=== PATIENT | female | born 1955 | race Caucasian/White ===

== ENCOUNTER 2017-05-07 09:42 | Observation (INO) | payer OTHER ==
[2017-05-07] VITALS (8 sets, daily range): BP systolic 126–156; BP diastolic 63–93; PULSE 77–87; RESP 16–20; TEMP 98.3–99.3; O2SAT 96–100
[~2017-05-07] VITALS: Ht 165.1 cm; Wt 67.0 kg
[~2017-05-07 09:42] MED LIST: PROPOFOL 200 MG/20 ML AMP IV ONE
[2017-05-07] MEDS ORDERED: DOCU50CA5 (10:06)
[2017-05-07] MEDS ORDERED: HYDR-3516 PO (10:06)
[2017-05-07] MEDS ORDERED: ADAL1INJ SQ (10:06)
[2017-05-07] MEDS ORDERED: TRAM50TA PO (10:06)
[2017-05-07] MEDS ORDERED: FAMO1TAB37 PO (10:06)
[2017-05-07] MEDS ORDERED: NAPR500 PO (10:06)
[2017-05-07] MEDS ORDERED: ROBA500T PO (10:06)
[2017-05-07] MEDS ORDERED: SODIUM CHLOR 0.9% 1000 ML INJ 1,000 ML IV SCH (10:14)
[2017-05-07] MEDS ORDERED: SODIUM CHLORIDE 0.9% FLUSH 10 ML FLUSH IV FLUSH PRN ×2 (10:15→15:45)
[2017-05-07] MEDS ORDERED: PROCHLORPERAZINE INJ 10 MG/2 ML VIAL IV PUSH ONE (10:15)
[2017-05-07] MEDS ORDERED: MORPHINE SULFATE 4 MG/ML INJ IV PUSH ONE (10:15)
--- NOTE | 2017-05-07 10:17 | PD ---
HPI Chief Complaint: GI Complaint Time Seen by Provider: 10:08 Travel History International Travel<30 days: No Contact w/Intl Traveler<30days: No Traveled to known affect area: No History of Present Illness HPI PATIENT HAD ABDOMINOPLASTY/LIFT ABOUT 1 WEEK AGO, BY DR DEJESUS, SHE WAS CONSTIPATED AND TOOK SENOKOT AND SINCE YESTERDAY HAS HAD 12 BM, AND N/V NOT IMPROVED BY ZOFRAN, FEELS LIGHTHEADED NOW. DENIES ANY FEVER/SAMUELS/CP/... PER PATIENT PMHX INCLUDED GERD , ESOPHAGEAL STRICTURE AND CHRON'S DZ. NO ALLEVIATING/AGGRAVATING FACTORS PER PATIENT. .PATIENT DOES NOT HAVE LOCAL GI DOCTOR AT THIS POINT DUE TO RECENT MOVE TO AREA. PATIENT WAS DUE FOR FOLLOWUP WITH DR DEJESUS TOMORROW BUT DECIDED TO COME TO ER BECAUSE SHE WAS NOT IMPROVING AND LIGHTHEADEDNESS APPEARED TO WORSEN PFSH Past Medical History GERD: Yes Medical other: Yes (chron's ds) Past Surgical History Abdominal Surgery: Yes (abdominoplasty) Other Surgery: Yes (breast lift, fistula sug, c2 neck surg) Social History Alcohol Use: No Tobacco Use: No Substance Use: No Allergies-Medications (Allergen,Severity, Reaction): Coded Allergies: No Known Allergies (Verified Allergy, Unknown, 05/07/17) Reported Meds & Prescriptions Reported Meds & Active Scripts Active Reported Humira 2-Pack Inj (Adalimumab 2-Pack Inj) 10 Mg/0.2 Ml Syr Unknown Dose SQ EVERY OTHER MONTH Tramadol (Tramadol HCl) 50 Mg Tab Unknown Dose PO Q4H PRN Hydrocodone-Acetaminophen 5-325 mg Tab 1 Tab PO Q4H PRN Robaxin (Methocarbamol) 500 Mg Tab Unknown Dose PO QID Stool Softener (Docusate Sodium) 50 Mg Capsule Unknown Dose Review of Systems Except as stated in HPI: all other systems reviewed are Neg Gastrointestinal: Positive: Nausea, Diarrhea Physical Exam Narrative GENERAL: SKIN: Warm and dry. HEAD: Atraumatic. Normocephalic. EYES: Pupils equal and round. No scleral icterus. No injection or drainage. ENT: No nasal bleeding or discharge. Mucous membranes pink and moist. NECK: Trachea midline. No JVD. CARDIOVASCULAR: Regular rate and rhythm. RESPIRATORY: No accessory muscle use. Clear to auscultation. Breath sounds equal bilaterally. GASTROINTESTINAL: Abdomen soft, non-tender, nondistended. Hepatic and splenic margins not palpable. MUSCULOSKELETAL: Extremities without clubbing, cyanosis, or edema. No obvious deformities. NEUROLOGICAL: Awake and alert. No obvious cranial nerve deficits. Motor grossly within normal limits. Five out of 5 muscle strength in the arms and legs. Normal speech. PSYCHIATRIC: Appropriate mood and affect; insight and judgment normal. Data Data Last Documented VS Orders Orders Complete Blood Count With Diff (05/07/17 10:14) Comprehensive Metabolic Panel (05/07/17 10:14) Lipase (05/07/17 10:14) Urinalysis - C+S If Indicated (05/07/17 10:14) Ct Abd/Pel W/O Iv Contrast (05/07/17 10:14) Iv Access Insert/Monitor (05/07/17 10:14) Ecg Monitoring (05/07/17 10:14) Oximetry (05/07/17 10:14) NPO (05/07/17 10:14) Morphine Inj (Morphine Inj) (05/07/17 10:15) Sodium Chlor 0.9% 1000 Ml Inj (Ns 1000 M (05/07/17 10:14) Sodium Chloride 0.9% Flush (Ns Flush) (05/07/17 10:15) Prochlorperazine Inj (Compazine Inj) (05/07/17 10:15) Ceftriaxone Inj (Rocephin Inj) (05/07/17 13:15) Azithromycin Inj (Zithromax Inj) (05/07/17 13:15) Chest, Pa & Lat (05/07/17 ) Admit Order (Ed Use Only) (05/07/17 14:21) Labs Laboratory Tests Test 05/07/17 10:30 05/07/17 11:30 White Blood Count 13.8 TH/MM3 Red Blood Count 2.94 MIL/MM3 Hemoglobin 9.0 GM/DL Hematocrit 26.9 % Mean Corpuscular Volume 91.5 FL Mean Corpuscular Hemoglobin 30.5 PG Mean Corpuscular Hemoglobin Concent 33.4 % Red Cell Distribution Width 13.3 % Platelet Count 360 TH/MM3 Mean Platelet Volume 10.5 FL Neutrophils (%) (Auto) 78.3 % Lymphocytes (%) (Auto) 10.7 % Monocytes (%) (Auto) 6.7 % Eosinophils (%) (Auto) 2.0 % Basophils (%) (Auto) 2.3 % Neutrophils # (Auto) 10.8 TH/MM3 Lymphocytes # (Auto) 1.5 TH/MM3 Monocytes # (Auto) 0.9 TH/MM3 Eosinophils # (Auto) 0.3 TH/MM3 Basophils # (Auto) 0.3 TH/MM3 CBC Comment DIFF FINAL Differential Comment Blood Urea Nitrogen 10 MG/DL Creatinine 0.62 MG/DL Random Glucose 126 MG/DL Total Protein 6.5 GM/DL Albumin 2.8 GM/DL Calcium Level 8.6 MG/DL Alkaline Phosphatase 49 U/L Aspartate Amino Transf (AST/SGOT) 42 U/L Alanine Aminotransferase (ALT/SGPT) 35 U/L Total Bilirubin 0.8 MG/DL Sodium Level 135 MEQ/L Potassium Level 4.4 MEQ/L Chloride Level 102 MEQ/L Carbon Dioxide Level 25.7 MEQ/L Anion Gap 7 MEQ/L Estimat Glomerular Filtration Rate 98 ML/MIN Lipase 128 U/L Urine Color YELLOW Urine Turbidity CLEAR Urine pH 8.0 Urine Specific [place] 1.016 Urine Protein NEG mg/dL Urine Glucose (UA) NEG mg/dL Urine Ketones 15 mg/dL Urine Occult Blood NEG Urine Nitrite NEG Urine Bilirubin NEG Urine Leukocyte Esterase NEG Urine Squamous Epithelial Cells 0-5 /hpf Microscopic Urinalysis Comment CULT NOT INDICATED MDM Medical Decision Making Medical Screen Exam Complete: Yes Emergency Medical Condition: Yes Medical Record Reviewed: Yes Differential Diagnosis ENTERITIS V PNA V UTI V GASTRITIS V SBO V ILEUS Narrative Course AFTER THOROUGH EVALUATION PATIENT WAS NOTED TO HAVE RLL AND CONTINUED INTRACTABLE NAUSEA, PATIENT GIVEN IV ABX AND ADMITTED DUE TO PERSISTENT NAUSEA AND UNABLE TO TOLERATE PO CHALLENGE. Diagnosis Primary Impression: RLL pneumonia Qualified Codes: J18.1 - Lobar pneumonia, unspecified organism Admitting Information Admitting Physician Requests: Observation Scripts Azithromycin (Azithromycin) 250 Mg Tab 250 MG PO DAILY for Infection, #3 TAB 0 Refills Prov: Jeremy Lee MD 05/10/17 Levofloxacin (Levofloxacin) 500 Mg Tablet 500 MG PO DAILY for Infection, #7 TAB 0 Refills Prov: Jeremy Lee MD 05/10/17 Sucralfate (Carafate) 1 Gram Tab 1 GM PO QID for Ulcer Prevention, #120 TAB 0 Refills On empty stomach Prov: Jeremy Lee MD 05/10/17 Pantoprazole (Protonix) 40 Mg Tab 40 MG PO twice daily for Reflux, #60 TAB 0 Refills Prov: Jeremy Lee MD 05/10/17 Fidel Iglesias MD May 07, 2017 10:17
[2017-05-07 10:44] LABS: AUTOMATED NEUTROPHIL # 10.8 TH/MM3 (1.8-7.7); BASOPHIL # 0.3 TH/MM3 (0-0.2); BASOPHIL % 2.3 % (0.0-2.0); EOSINOPHIL # 0.3 TH/MM3 (0-0.4); HEMATOCRIT 26.9 % (35.0-46.0); LYMPH % 10.7 % (9.0-44.0); LYMPHOCYTE # 1.5 TH/MM3 (1.0-4.8); MEAN CELL VOLUME 91.5 FL (80.0-100.0); MEAN CORPUSCULAR HEMOGLOBIN 30.5 PG (27.0-34.0); MEAN CORPUSCULAR HGB CONC 33.4 % (32.0-36.0); MONO % 6.7 % (0.0-8.0); NEUT % 78.3 % (16.0-70.0); PLATELET COUNT 360 TH/MM3 (150-450); RED BLOOD COUNT 2.94 MIL/MM3 (4.00-5.30); RED CELL DISTRIBUTION WIDTH 13.3 % (11.6-17.2); WHITE BLOOD COUNT 13.8 TH/MM3 (4.0-11.0)
[2017-05-07 10:46] LABS: CHLORIDE 102 MEQ/L (98-107); POTASSIUM 4.4 MEQ/L (3.5-5.1); SODIUM (NA) 135 MEQ/L (136-145)
[2017-05-07 10:52] LABS: ANION GAP 7 MEQ/L (5-15); BICARBONATE 25.7 MEQ/L (21.0-32.0); BLOOD UREA NITROGEN 10 MG/DL (7-18)
[2017-05-07 10:54] LABS: ALT (GPT) 35 U/L (10-53); AST (GOT) 42 U/L (15-37); HEMO FLAGS DIFF FINAL
[2017-05-07 10:55] LABS: GLOMERULAR FILTRATION RATE 98 ML/MIN (>89)
[2017-05-07 10:56] LABS: TOTAL BILIRUBIN ADULT 0.8 MG/DL (0.2-1.0)
[2017-05-07 10:57] LABS: ALKALINE PHOSPHATASE 49 U/L (45-117)
--- NOTE | 2017-05-07 11:33 | RADRPT ---
EXAM DATE/TIME: 05/07/2017 11:03 [facility] COMPARISON: No previous studies available for comparison. INDICATIONS : Nausea. Status post abdominoplasty one week ago. No improvement with nausea medication during that time. ORAL CONTRAST: No oral contrast ingested. RADIATION DOSE: 11.69 CTDIvol (mGy) MEDICAL HISTORY : Gastroesophageal reflux disease. SURGICAL HISTORY : Abdominoplasty. ENCOUNTER: Initial ACUITY: 1 week PAIN SCALE: 4/10 LOCATION: abdomen TECHNIQUE: Volumetric scanning of the abdomen and pelvis was performed. Using automated exposure control and ad justment of the mA and/or kV according to patient size, radiation dose was kept as low as reasonably achievable to obtain optimal diagnostic quality images. DICOM format image data is available electro nically for review and comparison. FINDINGS: LOWER LUNGS: Consolidative changes are seen in the right lung base suspicious for an inflammatory process. Atelec tatic changes would be a consideration. The liver, spleen, pancreas and adrenals unremarkable. Kidneys unremarkable. There is no free air. There is no ascites. Pelvic contents unremarkable. Extensive induration is seen in the anterior abdominal wall with scattered air throughout the abdomin al wall consistent with the history of previous abdominoplasty. These indurative changes extend down to the pubic symphysis and laterally into both femurs. CONCLUSION: Markedly abnormal abdominal wall as described above. Air and induration is present. I am not sure if this is expected postsurgical or not. Inflammatory changes versus atelectasis right base. I would favor an inflammatory process. Intra-abdominal contents unremarkable without free air. Jesus Arciniega MD FACR on May 07, 2017 at 11:19 Board Certified Radiologist. This report was verified electronically.
[2017-05-07 11:54] LABS: BLOOD, URINE NEG (NEG); GLUCOSE,URINE NEG (NEG); KETONE, URINE 15 mg/dL (NEG); NITRITE,URINE NEG (NEG)
[2017-05-07 12:05] LABS: URINE COLOR YELLOW (YELLW/STRAW)
[2017-05-07 12:06] LABS: COMMENT (UR) CULT NOT INDICATED; CULTURE IF INDICATED CULT NOT INDICATED; SQUAMOUS EPITHELIAL CELL URINE 0-5 /hpf (0-5)
[2017-05-07] MEDS ORDERED: AZITHROMYCIN INJ 500 MG in SODIUM CHLOR 0.9% 250 ML INJ 250 ML IV ONE (13:15)
[2017-05-07] MEDS ORDERED: cefTRIAXone INJ 1,000 MG in SODIUM CHLORIDE 0.9% INJ 100 ML IV ONE (13:15)
[2017-05-07] MEDS ORDERED: METOCLOPRAMIDE HCL 10 MG/2 ML VIAL IV PUSH ONE (15:00)
--- NOTE | 2017-05-07 15:18 | RADRPT ---
EXAM DATE/TIME: 05/07/2017 14:30 [facility] COMPARISON: CT ABDOMEN & PELVIS W/O CONTRAST, May 07, 2017, 11:03. INDICATIONS : Cough MEDICAL HISTORY : Gastroesophageal reflux disease. SURGICAL HISTORY : Abdominoplasty. ENCOUNTER: Initial ACUITY: 1 week PAIN SCORE: 4/10 LOCATION: Bilateral chest FINDINGS: The examination demonstrates a focal area of dense consolidation in the right middle lobe. There is a small amount of atelectasis at the left lung base as well. The heart is normal in size. The mediasti nal contours are within normal limits. No pleural effusion is seen. The bony structures are intact. CONCLUSION: 1. There is an area of dense consolidation in the right middle lobe. Followup to ensure this resolves would be warranted. Akin Arciniega MD on May 07, 2017 at 15:15 Board Certified Radiologist. This report was verified electronically.
[2017-05-07] MEDS ORDERED: NALOXONE HCL 0.4 MG/ML AMP IV PUSH PRN (16:15)
[2017-05-07] MEDS ORDERED: ONDANSETRON HCL 4 MG/2 ML VIAL IVP PRN (16:15)
[2017-05-07] MEDS ORDERED: ACETAMINOPHEN 325 MG TAB PO PRN ×2 (16:15→16:45)
--- NOTE | 2017-05-07 16:40 | HHI.HP ---
[facility] No Primary Care Physician Admission Diagnosis RLL PNA Diagnoses: (1) HCAP (healthcare-associated pneumonia) Diagnosis: Principal (2) S/P abdominoplasty Diagnosis: Principal (3) Hip pain, bilateral Diagnosis: Principal (4) Nausea Diagnosis: Principal (5) Anemia Diagnosis: Principal Chief Complaint: nauseated, fevers Travel History International Travel<30 Days: No Contact w/Intl Traveler <30 Da: No Traveled to Known Affected Are: No History of Present Illness 62-year-old female with history of Crohn's disease, GERD, and DDD with abdominoplasty/lift and liposuction of B/L hips one week ago is admitted for pneumonia. Patient states she has been nauseated off and on and she has not been keeping anything down over the last few days and she thought she was dehydrated. One episode of emesis this morning. Post op SL Zofran not working. She admits to low-grade fevers stating she even had one this afternoon admitting to flushed face and "hot" eyes. She admits to chills. She did not take her temperature at home. She admits to abdominal pain and bilateral hip pain from surgery last week. She was prescribed hydrocodone and Robaxin postop. She stopped taking the hydrocodone over the last few days due to nausea although states it was helping the pain. She has also been taking naproxen 500 mg every 12 hours postop. She was given morphine in the ED which helped the pain. She states she has a history of GERD and she has been belching a lot and has not taken her medication lately due to the surgery. She requests being restarted on Protonix as she takes this or Pepcid at home. She states her physician Dr. Marc is out of town but she was supposed to follow up with his daughter tomorrow. She denies any runny nose, congestion, earache, sore throat , or cough, chest pain, or shortness of breath. She denies any redness around the incision site or purulent drainage. She states she had a little lightheadedness last night but denies any headache or blurred vision. She admits to a rash over her back but believes that it's a heat rash. Denies any dysuria. Patient states she was constipated and took a Senokot yesterday and had 12 loose bowel movements but it was not diarrhea. She states her Crohn's is well-controlled. She moved here one year ago and has not established care with a new GI physician. She takes Humira and last took it last month. Review of Systems Constitutional: COMPLAINS OF: Fever, Chills Eyes: DENIES: Blurred vision Ears, nose, mouth, throat: DENIES: Throat pain, Ear Pain, Running Nose Respiratory: DENIES: Cough, Shortness of breath Cardiovascular: DENIES: Chest pain Gastrointestinal: COMPLAINS OF: Abdominal pain, Constipation, Nausea, Vomiting , DENIES: Black stools, Bloody stools, Diarrhea Genitourinary: DENIES: Dysuria Musculoskeletal: COMPLAINS OF: Joint pain Integumentary: COMPLAINS OF: Rash Neurologic: DENIES: Headache + Lightheadedness last night Past Family Social History Past Medical History GERD Crohn's disease DDD of cervical spine Past Surgical History Abdominoplasty/lift and liposuction bilateral legs 1 week ago Breast lift Perirectal fistula surgery C4-C6 surgery 12:15 years ago Reported Medications Reported Meds & Active Scripts Active Reported Humira 2-Pack Inj (Adalimumab 2-Pack Inj) 10 Mg/0.2 Ml Syr Unknown Dose SQ EVERY OTHER MONTH (administered last month) Tramadol (Tramadol HCl) 50 Mg Tab Unknown Dose PO Q4H PRN Hydrocodone-Acetaminophen 5-325 mg Tab 1 Tab PO Q4H PRN Naprosyn (Naproxen) 500 Mg Tab 500 Mg PO BID Robaxin (Methocarbamol) 500 Mg Tab Unknown Dose PO QID Pepcid (Famotidine) 20 Mg Tab Unknown Dose PO BID or Protonix Stool Softener (Docusate Sodium) 50 Mg Capsule Unknown Dose Allergies: Coded Allergies: No Known Allergies (Verified Allergy, Unknown, 05/07/17) Family History Mother: of stroke at age 69, diabetes. Father: of pancreatic cancer at age 56, diabetes. Mother and father have no h/o immune disorders. 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 Denies alcohol use. Quit smoking cigarettes 15-20 years ago. Prior to this she smoked one half pack per day starting at age of 25. Denies illicit drug use. Physical Exam Vital Signs Vital Signs Date Time Temp Pulse Resp B/P (MAP) Pulse Ox O2 Delivery O2 Flow Rate FiO2 05/07/17 16:19 05/07/17 13:58 84 20 126/70 (88) 99 05/07/17 13:09 81 20 133/66 (88) 96 05/07/17 12:13 82 18 142/63 (89) 98 05/07/17 11:25 77 20 135/93 (107) 98 05/07/17 10:30 87 20 128/76 (93) 100 05/07/17 10:30 100 05/07/17 09:51 99.3 85 16 147/79 (101) 100 Physical Exam GENERAL: This is a well-nourished, well-developed patient, in no apparent distress but appears to be feeling unwell. SKIN: Small scabbed lesions to the lower back. Umbilical and pelvic incision sites appear without erythema, dehiscence, or drainage. Light ecchymosis over the anterior thighs. HEAD: Atraumatic. Normocephalic. EYES: No scleral icterus. No injection or drainage. ENT: Uvula midline. Airway patent. NECK: Trachea midline. No lymphadenopathy. CARDIOVASCULAR: Regular rate and rhythm without murmurs, gallops, or rubs. RESPIRATORY: Clear to auscultation. Breath sounds equal bilaterally. No wheezes , rales, or rhonchi. GASTROINTESTINAL: No deep palpation performed due patient's discomfort, but no guarding. Abdomen soft, nondistended. MUSCULOSKELETAL: No lower extremity edema bilaterally. NEUROLOGICAL: Awake and alert. Motor grossly within normal limits. Normal speech. Laboratory Laboratory Tests Test 05/07/17 10:30 05/07/17 11:30 White Blood Count 13.8 Red Blood Count 2.94 Hemoglobin 9.0 Hematocrit 26.9 Mean Corpuscular Volume 91.5 Mean Corpuscular Hemoglobin 30.5 Mean Corpuscular Hemoglobin Concent 33.4 Red Cell Distribution Width 13.3 Platelet Count 360 Mean Platelet Volume 10.5 Neutrophils (%) (Auto) 78.3 Lymphocytes (%) (Auto) 10.7 Monocytes (%) (Auto) 6.7 Eosinophils (%) (Auto) 2.0 Basophils (%) (Auto) 2.3 Neutrophils # (Auto) 10.8 Lymphocytes # (Auto) 1.5 Monocytes # (Auto) 0.9 Eosinophils # (Auto) 0.3 Basophils # (Auto) 0.3 CBC Comment DIFF FINAL Differential Comment Blood Urea Nitrogen 10 Creatinine 0.62 Random Glucose 126 Total Protein 6.5 Albumin 2.8 Calcium Level 8.6 Alkaline Phosphatase 49 Aspartate Amino Transf (AST/SGOT) 42 Alanine Aminotransferase (ALT/SGPT) 35 Total Bilirubin 0.8 Sodium Level 135 Potassium Level 4.4 Chloride Level 102 Carbon Dioxide Level 25.7 Anion Gap 7 Estimat Glomerular Filtration Rate 98 Lipase 128 Urine Color YELLOW Urine Turbidity CLEAR Urine pH 8.0 Urine Specific [place] 1.016 Urine Protein NEG Urine Glucose (UA) NEG Urine Ketones 15 Urine Occult Blood NEG Urine Nitrite NEG Urine Bilirubin NEG Urine Leukocyte Esterase NEG Urine Squamous Epithelial Cells 0-5 Microscopic Urinalysis Comment CULT NOT INDICATED Result Diagram: 05/07/17 1030 05/07/17 1030 Imaging Last Impressions Abdomen/Pelvis CT 05/07/17 1014 Signed Impressions: Service Date/Time: Sunday, May 07, 2017 11:03 - CONCLUSION: Markedly abnormal abdominal wall as described above. Air and induration is present. I am not sure if this is expected postsurgical or not. Inflammatory changes versus atelectasis right base. I would favor an inflammatory process. Intra-abdominal contents unremarkable without free air. Jesus Arciniega MD FACR Chest X-Ray 05/07/17 0000 Signed Impressions: Service Date/Time: Sunday, May 07, 2017 14:30 - CONCLUSION: 1. There is an area of dense consolidation in the right middle lobe. Followup to ensure this resolves would be warranted. Akin Arciniega MD Caprini VTE Risk Assessment Caprini VTE Risk Assessment: Mod/High Risk (score >= 2) Caprini Risk Assessment Model Point Value = 1 Point Value = 2 Point Value = 3 Point Value = 5 Age 41-60 Minor surgery BMI > 25 kg/m2 Swollen legs Varicose veins or History of unexplained or recurrent spontaneous Oral contraceptives or hormone replacement Sepsis (< 1 month) Serious lung disease, including pneumonia (< 1 month) Abnormal pulmonary function Acute myocardial infarction Congestive heart failure (< 1 month) History of inflammatory bowel disease Medical patient at bed rest Age 61-74 Arthroscopic surgery Major open surgery (> 45 min) Laparoscopic surgery (> 45 min) Malignancy Confined to bed (> 72 hours) Immobilizing plaster cast Central venous access Age >= 75 History of VTE Family history of VTE Factor V Leiden Prothrombin [id number] Lupus anticoagulant Anticardiolipin antibodies Elevated serum homocysteine Heparin-induced thrombocytopenia Other congenital or acquired thrombophilia Stroke (< 1 month) Elective arthroplasty Hip, pelvis, or leg fracture Acute spinal cord injury (< 1 month) Prophylaxis Regimen Total Risk Factor Score Risk Level Prophylaxis Regimen 0-1 Low Early ambulation 2 Moderate Order ONE of the following: *Sequential Compression Device (SCD) *Heparin 5000 units SQ BID 3-4 Higher Order ONE of the following medications: *Heparin 5000 units SQ TID *Enoxaparin/Lovenox 40 mg SQ daily (WT < 150 kg, CrCl > 30 mL/min) *Enoxaparin/Lovenox 30 mg SQ daily (WT < 150 kg, CrCl > 10-29 mL/min) *Enoxaparin/Lovenox 30 mg SQ BID (WT < 150 kg, CrCl > 30 mL/min) AND/OR *Sequential Compression Device (SCD) 5 or more Highest Order ONE of the following medications: *Heparin 5000 units SQ TID (Preferred with Epidurals) *Enoxaparin/Lovenox 40 mg SQ daily (WT < 150 kg, CrCl > 30 mL/min) *Enoxaparin/Lovenox 30 mg SQ daily (WT < 150 kg, CrCl > 10-29 mL/min) *Enoxaparin/Lovenox 30 mg SQ BID (WT < 150 kg, CrCl > 30 mL/min) AND *Sequential Compression Device (SCD) Assessment and Plan Assessment and Plan 62-year-old female with: Healthcare associated pneumonia: Patient recently had abdominoplasty one week ago; hospitalized for only 1 day. On Humira for Crohn's. She works in the hospital. Likely related to not taking deep breaths due to pain and abdominal binder use. She does admit to low-grade fevers and chills but has not had any respiratory symptoms. Chest x-ray was personally interpreted and does reveal an obvious pneumonia in the right middle lobe. Patient has mild leukocytosis of 13.8, but no evidence of sepsis. Temp 99.3 tympanic on arrival, no fever. Patient's lungs are clear. -Patient received ceftriaxone and azithromycin in the ED. Will continue patient on cefepime and azithromycin. -Incentive spirometry -Albuterol q4h prn wheezing/SOB -Monitor pulse oximetry Status post abdominoplasty: 1 week ago. Patient has continued pain over the abdomen as well as the hips. CT of the abdomen and pelvis shows air and induration but these are likely normal post surgical changes. The intra- abdominal contents are unremarkable without free air. Incision sites appear to be healing well. No evidence of infection. -Pain control with [place] 5 q6h prn pain 3-6 and [place] 10 q6h prn pain 7-10 with breakthrough morphine q4h prn. Avoid q4 dosing of [place] due to pneumonia. Monitor respiratory status. -Continue abdominal binder B/L hip pain: due to liposuction 1 week ago. -PT consulted Nausea: Patient has been taking SL Zofran without relief. One episode of emesis. Received IV Compazine and Reglan in the ED. Lipase normal. UA negative. -Initially ordered Zofran and Reglan IV but RN informed me that patient states only the Compazine worked. Will order Compazine 5 mg q6h IV prn nausea/vomiting. -IV NS @ 100 mL/hr -BRAT diet for now. Advance as tolerated Anemia: Acute. Hemoglobin 9.0. Patient states her preoperative hemoglobin was 12.?. States surgery was 6.5 hours. Likely post-operative anemia. -Repeat am CBC. GI prophylaxis: Protonix 40 mg daily. Tums and Maalox prn dyspepsia. DVT prophylaxis: Lovenox 40 mg sq daily. Discussed Condition With Susan Flower May 07, 2017 16:40
[2017-05-07] MEDS ORDERED: ALUMINUM/MAGNESIUM/SIMETH 30 ML CUP PO PRN (16:45)
[2017-05-07] MEDS ORDERED: MORPHINE SULFATE 4 MG/ML INJ IV PUSH PRN (16:45)
[2017-05-07] MEDS ORDERED: RESP: ALBUTEROL 1.25 MG/3 ML NEB (PRN) NEB (16:45)
[2017-05-07] MEDS ORDERED: ACETAMINOPHEN/HYDROcodone 325 MG/5 MG TAB PO PRN (16:45)
[2017-05-07] MEDS ORDERED: ACETAMINOPHEN/HYDROcodone 325 MG/10 MG TAB PO PRN (16:45)
[2017-05-07] MEDS: SODIUM CHLOR 0.9% 1000 ML INJ 1,000 ML IV SCH (16:55)
[2017-05-07] MEDS ORDERED: CALCIUM CARBONATE 500 MG CHEWABLE TAB CHEW PRN (17:15)
[2017-05-07] MEDS: ACETAMINOPHEN/HYDROcodone 325 MG/10 MG TAB PO PRN (18:21)
[2017-05-07] MEDS: CEFEPIME INJ 2,000 MG in SODIUM CHLORIDE 0.9% INJ 100 ML IV SCH (18:27)
[2017-05-07] MEDS: ENOXAPARIN SODIUM 40 MG/0.4 ML SYRINGE SQ SCH (18:30)
[2017-05-07] MEDS: PANTOPRAZOLE SOD 40 MG DELAYED RELEASE TAB PO SCH (20:59)
[2017-05-07] MEDS: SODIUM CHLORIDE 0.9% FLUSH 10 ML FLUSH IV FLUSH SCH (20:59)
[2017-05-07] MEDS ORDERED: METOCLOPRAMIDE HCL 10 MG/2 ML VIAL IV PUSH PRN (21:00)
[2017-05-07] MEDS: PROCHLORPERAZINE INJ 10 MG/2 ML VIAL IV PUSH PRN (21:02)
[2017-05-08] VITALS (13 sets, daily range): BP systolic 106–157; BP diastolic 56–87; PULSE 18–88; RESP 12–20; TEMP 96.9–98.8; O2SAT 96–99
[2017-05-08] MEDS: CEFEPIME INJ 2,000 MG in SODIUM CHLORIDE 0.9% INJ 100 ML IV SCH ×3 (01:52→20:41)
[2017-05-08] MEDS: SODIUM CHLOR 0.9% 1000 ML INJ 1,000 ML IV SCH ×2 (01:53→16:57)
[2017-05-08] MEDS: PROCHLORPERAZINE INJ 10 MG/2 ML VIAL IV PUSH PRN ×2 (03:19→11:44)
[2017-05-08] MEDS: ACETAMINOPHEN/HYDROcodone 325 MG/10 MG TAB PO PRN (06:19)
[2017-05-08 06:32] LABS: BASOPHIL # 0.1 TH/MM3 (0-0.2); BASOPHIL % 0.5 % (0.0-2.0); EOSINOPHIL # 0.4 TH/MM3 (0-0.4); EOSINOPHIL % 2.8 % (0.0-4.0); HEMATOCRIT 23.5 % (35.0-46.0); LYMPH % 11.5 % (9.0-44.0); LYMPHOCYTE # 1.5 TH/MM3 (1.0-4.8); MEAN CELL VOLUME 92.6 FL (80.0-100.0); MEAN CORPUSCULAR HEMOGLOBIN 30.7 PG (27.0-34.0); MEAN CORPUSCULAR HGB CONC 33.2 % (32.0-36.0); MONO % 6.2 % (0.0-8.0); PLATELET COUNT 307 TH/MM3 (150-450); RED BLOOD COUNT 2.54 MIL/MM3 (4.00-5.30); RED CELL DISTRIBUTION WIDTH 13.1 % (11.6-17.2); WHITE BLOOD COUNT 12.8 TH/MM3 (4.0-11.0)
[2017-05-08 06:42] LABS: HEMO FLAGS DIFF FINAL; POTASSIUM 4.1 MEQ/L (3.5-5.1)
[2017-05-08 06:57] LABS: BICARBONATE 24.6 MEQ/L (21.0-32.0)
[2017-05-08] MEDS: SODIUM CHLORIDE 0.9% FLUSH 10 ML FLUSH IV FLUSH SCH ×2 (09:07→20:41)
[2017-05-08] MEDS: PANTOPRAZOLE SOD 40 MG DELAYED RELEASE TAB PO SCH (09:08)
[2017-05-08] MEDS ORDERED: SODIUM CHLOR 0.9% 250 ML INJ 250 ML IV ONE (10:00)
--- NOTE | 2017-05-08 11:20 | HHI.PR ---
Subjective Remarks Seen today in follow-up for pneumonia and post op constipation with subsequent nausea. Gastro-intestinal symptoms are improved. Patient has diffuse bruises postoperatively. Her hemoglobin has gone from 9-7.8. Patient says prior to her surgical experiences her hemoglobin was about 13. Leukocytosis improved after hydration. Patient tolerates azithromycin and cefepime well. Objective Vitals Vital Signs Date Time Temp Pulse Resp B/P (MAP) Pulse Ox O2 Delivery O2 Flow Rate FiO2 05/08/17 08:00 96.9 71 14 121/79 (93) 97 05/08/17 00:00 98.4 84 20 131/70 (90) 98 05/07/17 20:00 98.3 85 20 156/79 (104) 99 05/07/17 18:45 97 21 05/07/17 16:19 05/07/17 13:58 84 20 126/70 (88) 99 05/07/17 13:09 81 20 133/66 (88) 96 05/07/17 12:13 82 18 142/63 (89) 98 05/07/17 11:25 77 20 135/93 (107) 98 I/O 05/07/17 05/07/17 05/07/17 05/08/17 05/08/17 05/08/17 07:00 15:00 23:00 07:00 15:00 23:00 Intake Total 268 ml 100 ml 220 ml Output Total 1100 ml Balance 268 ml 100 ml -880 ml Intake Oral 120 ml IV Total 268 ml 100 ml 100 ml Output Urine Total 1100 ml # Voids 1 # Bowel Movements 1 0 Result Diagram: 05/08/17 0520 05/08/17 0520 Imaging Last Impressions Abdomen/Pelvis CT 05/07/17 1014 Signed Impressions: Service Date/Time: Sunday, May 07, 2017 11:03 - CONCLUSION: Markedly abnormal abdominal wall as described above. Air and induration is present. I am not sure if this is expected postsurgical or not. Inflammatory changes versus atelectasis right base. I would favor an inflammatory process. Intra-abdominal contents unremarkable without free air. Jesus Arciniega MD FACR Chest X-Ray 05/07/17 0000 Signed Impressions: Service Date/Time: Sunday, May 07, 2017 14:30 - CONCLUSION: 1. There is an area of dense consolidation in the right middle lobe. Followup to ensure this resolves would be warranted. Akin Arciniega MD Objective Remarks Diffuse ecchymosis and postsurgical changes GENERAL: This is a well-nourished, well-developed patient, in no apparent distress. CARDIOVASCULAR: Regular rate and rhythm without murmurs, gallops, or rubs. RESPIRATORY: Clear to auscultation. Breath sounds equal bilaterally. No wheezes , rales, or rhonchi. GASTROINTESTINAL: Abdominal binder in place otherwise Abdomen soft, non-tender, nondistended. Normal active bowel sounds MUSCULOSKELETAL: Extremities without clubbing, cyanosis, or edema. NEURO: Alert & Oriented x4 to person, place, time, situation. Moves all ext x4 A/P Problem List: (1) HCAP (healthcare-associated pneumonia) ICD Code: J18.9 - Pneumonia, unspecified organism Plan: Continue with azithromycin and cefepime, likely to oral medicines tomorrow (2) S/P abdominoplasty ICD Code: Z98.890 - Other specified postprocedural states Plan: Doing well postoperatively, follows up with plastic surgery Continue abdominal binder (3) Nausea ICD Code: R11.0 - Nausea Plan: Resolved, continue diet and supportive care (4) Anemia ICD Code: D64.9 - Anemia, unspecified Plan: Likely due to postoperative bleeding Transfuse 1 unit packed red blood cells, follow clinically Discharge Planning Likely discharge in a.m. if stable, follow-up hemoglobin Jie Echevarria MD May 08, 2017 11:20
[2017-05-08] MEDS: ACETAMINOPHEN/HYDROcodone 325 MG/5 MG TAB PO PRN ×2 (11:46→21:45)
[2017-05-08] MEDS ORDERED: AZITHROMYCIN INJ 500 MG in SODIUM CHLOR 0.9% 250 ML INJ 250 ML IV SCH (14:00)
[2017-05-08] MEDS: ENOXAPARIN SODIUM 40 MG/0.4 ML SYRINGE SQ SCH (18:00)
[2017-05-09] VITALS: BP 140/85; PULSE 80; RESP 20; TEMP 98.9; O2SAT 96
[2017-05-09] MEDS: SODIUM CHLOR 0.9% 1000 ML INJ 1,000 ML IV SCH ×4 (02:46→14:27)
[2017-05-09] MEDS: CEFEPIME INJ 2,000 MG in SODIUM CHLORIDE 0.9% INJ 100 ML IV SCH ×3 (02:46→16:52)
[2017-05-09] MEDS: ACETAMINOPHEN/HYDROcodone 325 MG/5 MG TAB PO PRN ×2 (03:45→21:38)
[2017-05-09] MEDS: PROCHLORPERAZINE INJ 10 MG/2 ML VIAL IV PUSH PRN ×2 (06:01→14:27)
[2017-05-09 06:14] LABS: AUTOMATED NEUTROPHIL # 7.4 TH/MM3 (1.8-7.7); BASOPHIL # 0.1 TH/MM3 (0-0.2); BASOPHIL % 0.7 % (0.0-2.0); EOSINOPHIL # 0.7 TH/MM3 (0-0.4); EOSINOPHIL % 6.4 % (0.0-4.0); HEMATOCRIT 29.1 % (35.0-46.0); HEMO FLAGS DIFF FINAL; LYMPH % 12.8 % (9.0-44.0); LYMPHOCYTE # 1.3 TH/MM3 (1.0-4.8); MEAN CORPUSCULAR HEMOGLOBIN 30.4 PG (27.0-34.0); MEAN CORPUSCULAR HGB CONC 33.4 % (32.0-36.0); NEUT % 72.1 % (16.0-70.0); PLATELET COUNT 364 TH/MM3 (150-450); WHITE BLOOD COUNT 10.3 TH/MM3 (4.0-11.0)
[2017-05-09 06:22] LABS: POTASSIUM 4.1 MEQ/L (3.5-5.1)
[2017-05-09 06:25] LABS: BICARBONATE 26.9 MEQ/L (21.0-32.0)
[2017-05-09] MEDS: SODIUM CHLORIDE 0.9% FLUSH 10 ML FLUSH IV FLUSH SCH ×2 (07:22→21:00)
[2017-05-09 08:00] VITALS: BP 151/81; PULSE 79; RESP 18; TEMP 98.5; O2SAT 100
[2017-05-09] MEDS: PANTOPRAZOLE SOD 40 MG DELAYED RELEASE TAB PO SCH (09:06)
[2017-05-09] MEDS ORDERED: diphenhydrAMINE HCL 2%/ZINC ACETATE 0.1% CREAM 30 APPLIC/30 GM TUBE TOPICAL PRN (10:15)
[2017-05-09] MEDS: PROMETHAZINE INJ 25 MG/ML VIAL IM PRN ×2 (10:33→18:33)
--- NOTE | 2017-05-09 11:44 | HHI.PR ---
Subjective Remarks Nursing reports that the patient is having dry heaving this morning. Patient herself says last night she was feeling much better and expected that she would be feeling even better today and going home, but says that this morning her symptoms of nausea or much worse than ever. She states that since her operation about 10 days ago, she's continued to have progressively worsening belching and esophageal like dysphagia, particularly with solid meals, which she says she had in the past and had undergone esophageal dilatation for stricture. She says that she is going roughly daily but that her appetite is still very poor and not wanting to eat at all. Denies any headaches or vision changes. I independently reviewed the CT abdomen film and see mild to moderate stool retention. Objective Vital Signs Date Time Temp Pulse Resp B/P (MAP) Pulse Ox O2 Delivery O2 Flow Rate FiO2 05/09/17 08:00 98.5 79 18 151/81 (104) 100 05/09/17 00:00 98.9 80 20 140/85 (103) 96 05/08/17 20:00 98.7 85 20 157/78 (104) 99 05/08/17 16:42 98.8 88 18 128/76 (93) 97 05/08/17 16:40 98.8 88 18 128/76 97 05/08/17 13:18 98.2 88 16 106/56 (73) 96 05/08/17 12:46 12 I/O 05/08/17 05/08/17 05/08/17 05/09/17 05/09/17 05/09/17 07:00 15:00 23:00 07:00 15:00 23:00 Intake Total 100 ml 720 ml 2240 ml 120 ml 100 ml Output Total 1100 ml 0 ml 2000 ml Balance 100 ml -380 ml 2240 ml -1880 ml 100 ml Intake Oral 120 ml 1000 ml 120 ml IV Total 100 ml 600 ml 830 ml 100 ml Packed Cells 400 ml Blood Product IV Normal Saline Flush 10 ml Output Urine Total 1100 ml 2000 ml Stool Total 0 ml # Voids 1 6 8 # Bowel Movements 1 0 0 Result Diagram: 05/09/1751405/09/17514 Objective Remarks NAD lying in bed, awake abd is ND, has mild discomfort on palpation just adjacent to lower abd incision w/ very subtle induration alongside incisions, no erythema, no drainage. no RUQ TTP. No suprapubic TTP. A/P Assessment and Plan Problem List: (1) HCAP (healthcare-associated pneumonia) Continue with azithromycin and cefepime, clinically improved. (2) Nausea etiology possibly GERD vs postoperative changes. Worsening, ordering LFTs and GB US. GI consult. 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 Failed w/ zofran, compazine and reglan. Trying Phenergan since it has last constipated effects. If symptoms don' t improve post GI evaluation and tx, will consider transferring pt to her plastic surgeon's service at [facility] in next day or so. (3) S/P abdominoplasty Continue abdominal binder (4) Anemia Likely due to postoperative bleeding got 1 unit, stable since yesterday. Repeating hb at 2pm today. Jeremy Lee MD May 09, 2017 11:44
[2017-05-09 12:00] VITALS: BP 155/83; PULSE 70; RESP 18; TEMP 98.5; O2SAT 100
[2017-05-09 12:19] LABS: INDIRECT BILIRUBIN 0.6 MG/DL (0.0-0.8); TOTAL BILIRUBIN ADULT 0.8 MG/DL (0.2-1.0)
--- NOTE | 2017-05-09 13:01 | RADRPT ---
EXAM DATE/TIME: 05/09/2017 12:22 [facility] COMPARISON: No previous studies available for comparison. INDICATIONS : Right upper quadrant pain. Nausea and vomiting. Status post abdominoplasty one week ago. MEDICAL HISTORY : Gastroesophageal reflux disease. Crohn's disease. Right upper quadrant pain. Nausea and vomiting. SURGICAL HISTORY : Cervical fusion. Abdominoplasty, one week ago. ENCOUNTER: Initial ACUITY: 4-6 days PAIN SCORE: 6/10 LOCATION: Right upper quadrant MEASUREMENTS: LIVER: 12.8 cm length COMMON DUCT: 3 mm RIGHT KIDNEY: 9.2 x 4.1 x 4.6 cm FINDINGS: LIVER: Normal echotexture without focal lesion or ductal dilatation. COMMON DUCT: No intraluminal mass or stone visualized. GALLBLADDER: Contains no stones, demonstrates no wall thickening or pericholecystic fluid. PANCREAS: The visualized portions are within normal limits. RIGHT KIDNEY: No evidence of hydronephrosis, stone, or mass. CONCLUSION: Negative for stone. Normal common duct. Jesus Arciniega MD FACR on May 09, 2017 at 12:59 Board Certified Radiologist. This report was verified electronically.
[2017-05-09] MEDS ORDERED: AZITHROMYCIN 250 MG TAB PO SCH (14:00)
[2017-05-09] MEDS: ENOXAPARIN SODIUM 40 MG/0.4 ML SYRINGE SQ SCH (16:49)
[2017-05-09 20:00] VITALS: BP 142/80; PULSE 71; RESP 18; TEMP 99.3; O2SAT 98
[2017-05-09 20:25] VITALS: O2SAT 98
--- NOTE | 2017-05-09 22:01 | MB ---
cc: NATHAN CURTIS M.D. DATE OF CONSULTATION 05/09/17 DATE OF [address] Jie Echevarria REASON FOR REFERRAL Nausea, vomiting, significant anemia, history of Crohn disease. Thank you for the consultation. HISTORY OF PRESENT ILLNESS A 62-year-old lady who has been in good health until recently. Patient known to have Crohn disease since she was [id number]. She uses Humira injection every other month and doing well. She gets her medications from [facility] in [place]. The patient did not have any symptoms. Apparently, she underwent an abdominoplasty and plastic surgery with liposuction about a week ago and since then she has significant abdominal discomfort with nausea. She was given pain medication including oxycodone but she was not using it. The patient felt that she is very dehydrated and weak so she came to the hospital and in the ER was found to be dehydrated, significantly anemic and possible pneumonia so she was admitted for further workup. The patient continued to complain of reflux symptom, midepigastric discomfort and nausea and vomiting. She denied any rectal bleeding. She feels that her Crohn disease is stable. Last colonoscopy was 5 years ago and she takes her medication regularly. REVIEW OF SYSTEMS All 12-point negative except HPI. PAST MEDICAL AND SURGICAL HISTORY The patient had breast lift and abdominoplasty. Perirectal fistula surgery. C4 and C6 fusion. Crohn disease. Reflux symptoms. MEDICATIONS Reviewed in the chart. FAMILY HISTORY Significant for diabetes. SOCIAL HISTORY No tobacco. Rare alcohol. She used to smoke in the past. No drugs. PHYSICAL EXAMINATION GENERAL: Alert, oriented, no acute distress. VITAL SIGNS: Stable. HEENT: Feel fatigued and tired. HEENT: Pupils are round, reactive to light. NECK: Supple. CHEST: Clear to auscultation and percussion. CARDIAC: Regular rate and rhythm. No murmur or gallop. ABDOMEN: Soft, diffuse abdominal tenderness. She is wearing a binder. Positive bowel sounds. EXTREMITIES: No edema, clubbing or cyanosis. NEUROLOGICALLY: Intact. PSYCHOLOGICALLY: Appropriate. LABORATORY DATA White count on admission was 13.8, today is 10.3, hemoglobin 9.7, platelets 346. Liver function test normal except mild elevation of AST. UA was negative. IMAGING STUDIES Gallbladder ultrasound was negative. Marked abnormal abdominal wall with induration consistent with recent surgery. ASSESSMENT/PLAN A 62-year-old lady with abdominal pain, nausea, vomiting, most likely related to her surgery but the patient has significant reflux and anemia. The anemia could be also related to blood loss during surgery. I recommend doing upper endoscopy and a colonoscopy. The patient preferred to wait on the colonoscopy because she does not feel that she can tolerate prep, so will do the upper endoscopy tomorrow and then a colonoscopy can be done as an outpatient when she is more stable especially with her Crohn disease and the last colonoscopy being 5 years. The patient understood the plan and agreed with it. We will continue PPI and further plan depends on the finding tomorrow and how she is doing. MD MILAGRO Waldron/CHER /5:08 PM /9:46 PM
[2017-05-10] MEDS: CEFEPIME INJ 2,000 MG in SODIUM CHLORIDE 0.9% INJ 100 ML IV SCH ×2 (01:12→09:46)
[2017-05-10] MEDS: SODIUM CHLOR 0.9% 1000 ML INJ 1,000 ML IV SCH (01:13)
[2017-05-10] MEDS ORDERED: CHLORHEXIDINE GLUCONATE 2 % 1 PACK (2 CLOTHS) TOPICAL PRN (03:15)
[2017-05-10] MEDS ORDERED: LACTATED RINGER'S 1000 ML IV PRN (03:15)
[2017-05-10] MEDS ORDERED: POVIDONE IODINE 5% (ANTISEPSIS KIT) 4 APPLICATIONS EACH NARE PRN (03:15)
[2017-05-10] MEDS ORDERED: METOPROLOL TARTRATE 25 MG TAB PO PRN (03:15)
[2017-05-10 07:00] VITALS: BP 134/84; PULSE 64; RESP 16; TEMP 98.7; O2SAT 100
[2017-05-10] MEDS ORDERED: APREPITANT 40 MG CAP ONE (07:01)
[2017-05-10] MEDS ORDERED: DEXAMETHASONE SOD PHOS 4 MG/ML VIAL ONE (07:01)
[2017-05-10] MEDS ORDERED: ONDANSETRON HCL 4 MG/2 ML VIAL ONE (07:01)
[2017-05-10] MEDS ORDERED: FAMOTIDINE 20 MG/2 ML VIAL ONE (07:02)
[2017-05-10] MEDS ORDERED: SUCCINYLCHOLINE CHLORIDE 200 MG/10 ML VIAL IV ONE (07:57)
[2017-05-10] MEDS: SODIUM CHLORIDE 0.9% FLUSH 10 ML FLUSH IV FLUSH SCH (08:01)
--- NOTE | 2017-05-10 08:10 | GIPROC ---
[facility] [address] [place] [address], [id number] EGD WITH DILATION PROCEDURE REPORT EXAM DATE: 05/10/2017 PATIENT NAME: Shelby Sotelo MR#: [id number] BIRTHDATE: 1955 ATTENDING: Catalina Aponte MD ORDER #: [id number] JIG OPERATOR: Tone Mckeon and Shantal Watt STATUS: inpatient INDICATIONS: The patient is a 62 yr old female here for an EGD with dilation due to nausea, vomiting, history of Crohn's disease, Schatzki's ring PROCEDURE PERFORMED: EGD w/ biopsy EGD w/ dilation of esophagus via guidewire MEDICATIONS: None and Per Anesthesia. TOPICAL ANESTHETIC: none CONSENT: The patient understands the risks and benefits of the procedure and understands that these risks include, but are not limited to: sedation, allergic reaction, infection, perforation and/or bleeding. Alternative means of evaluation and treatment include, among others: physical exam, x-rays, and/or surgical intervention. The patient elects to proceed with this endoscopic procedure. medical equipment was checked for proper function. Hand hygiene and appropriate measures for infection prevention was taken. After the risks, benefits and alternatives of the procedure were thoroughly explained, Informed consent was verified, confirmed and timeout was successfully executed by the treatment team. The patient was anesthetized with topical anesthesia and the Pentax [id number] endoscope was introduced through the mouth and advanced to the second portion of the duodenum. The instrument was slowly withdrawn as the mucosa was fully examined. Schatzki's ring -s/p dilatation duodenal bulb ulcers -two clean base-8 mm each -biopsy duodenum second portion-biopsy multiple superficial clean ulcers in antrum-biopsy, gastritis irregular z line-biopsy. Dilation was performed at gastroesophageal junction. DILATOR: SIZE(S): RESISTANCE: HEME: APPEARANCE: Dilator: Savary over guidewire Size(s): 16 COMMENT: Retroflexed views revealed a hiatal hernia ADVERSE EVENTS: There were no complications. IMPRESSIONS: 1. Schatzki's ring -s/p dilatation duodenal bulb ulcers -two clean base-8 mm each -biopsy duodenum second portion-biopsy multiple superficial clean ulcers in antrum-biopsy, gastritis irregular z line-biopsy 2. Retroflexed views revealed a hiatal hernia RECOMMENDATIONS: 1. Await biopsy results. Biopsy results will not be ready for 7-10 days. If you don't hear from us in two weeks, call our office for biopsy results. 2. Anti-reflux regimen 3. Continue PPI 4. Dilatations PRN 5. Carafate liquid avoid nsaids REPEAT EXAM: Return 6 weeks EGD Catalina Aponte MD eSigned: Catalina Aponte MD 05/10/2017 8:10 AM cc: PATIENT NAME: Shelby Sotelo MR#: [id number]
[2017-05-10 08:25] VITALS: PULSE 69
[2017-05-10] MEDS ORDERED: MORPHINE SULFATE 4 MG/ML INJ ONE (08:55)
[2017-05-10] MEDS ORDERED: PANTOPRAZOLE SODIUM 40 MG VIAL IV PUSH SCH (09:00)
[2017-05-10 12:00] VITALS: BP 115/87; PULSE 80; RESP 18; TEMP 98.6; O2SAT 97
[2017-05-10] MEDS ORDERED: SUCRALFATE 1 GM/10 ML CUP PO SCH (12:00)
[2017-05-10] MEDS ORDERED: PROT40TA PO (13:42)
[2017-05-10] MEDS ORDERED: CARA1TAB6 PO (13:43)
--- NOTE | 2017-05-10 13:45 | HHI.DCPOC ---
Discharge Care Plan Diagnosis: (1) Schatzki's ring (2) Gastritis Additional Problems Do not use any nonsteroidal anti-inflammatory drugs. Goals to Promote Your Health * To prevent worsening of your condition and complications * To maintain your health at the optimal level Directions to Meet Your Goals Take your medications as prescribed Follow your dietary instruction Follow activity as directed Keep your appointments as scheduled Take your immunizations and boosters as scheduled If your symptoms worsen call your PCP, if no PCP go to Urgent Care Center or Emergency Room Smoking is Dangerous to Your Health. Avoid second hand smoke Call the 24-hour hour crisis hotline for domestic abuse at Jeremy Lee MD May 10, 2017 13:45
[2017-05-10] MEDS ORDERED: LEVO500T8 PO (13:47)
[2017-05-10] MEDS ORDERED: AZIT250T3 PO (13:47)
--- NOTE | 2017-05-12 09:08 | HHI.DS ---
Discharge Summary Admission Date May 07, 2017 at 14:21 Discharge Date: May 10, 2017 Admitting Diagnosis RLL PNA (1) HCAP (healthcare-associated pneumonia) ICD Code: J18.9 - Pneumonia, unspecified organism (2) S/P abdominoplasty ICD Code: Z98.890 - Other specified postprocedural states (3) Nausea ICD Code: R11.0 - Nausea (4) Anemia ICD Code: D64.9 - Anemia, unspecified Procedures EGD w/ dilatation Brief History - From Admission 62-year-old female with history of Crohn's disease, GERD, and DDD with abdominoplasty/lift and liposuction of B/L hips one week ago is admitted for pneumonia. Patient states she has been nauseated off and on and she has not been keeping anything down over the last few days and she thought she was dehydrated. One episode of emesis this morning. Post op SL Zofran not working. She admits to low-grade fevers stating she even had one this afternoon admitting to flushed face and "hot" eyes. She admits to chills. She did not take her temperature at home. She admits to abdominal pain and bilateral hip pain from surgery last week. She was prescribed hydrocodone and Robaxin postop. She stopped taking the hydrocodone over the last few days due to nausea although states it was helping the pain. She has also been taking naproxen 500 mg every 12 hours postop. She was given morphine in the ED which helped the pain. She states she has a history of GERD and she has been belching a lot and has not taken her medication lately due to the surgery. She requests being restarted on Protonix as she takes this or Pepcid at home. She states her physician Dr. Marc is out of town but she was supposed to follow up with his daughter tomorrow. She denies any runny nose, congestion, earache, sore throat , or cough, chest pain, or shortness of breath. She denies any redness around the incision site or purulent drainage. She states she had a little lightheadedness last night but denies any headache or blurred vision. She admits to a rash over her back but believes that it's a heat rash. Denies any dysuria. Patient states she was constipated and took a Senokot yesterday and had 12 loose bowel movements but it was not diarrhea. She states her Crohn's is well-controlled. She moved here one year ago and has not established care with a new GI physician. She takes Humira and last took it last month. CBC/BMP: 05/09/1715 05/09/17514 PE at Discharge No acute distress Abdomen soft, nontender, nondistended, Demonstrates good ability to ambulate down the hallway without any difficulty Hospital Course Patient was initially started on tx for pneumonia. She then began to have persistent nausea that minimized her appetite. Gallbladder ultrasound was negative. The patient had an endoscopy done out of concern for esophageal strictures as she had in the past, and sure enough she underwent further dilatation and also was found to have gastric and duodenal ulcers. EGD: Schatzki 's ring -s/p dilatation duodenal bulb ulcers -two clean base-8 mm each -biopsy duodenum second portion-biopsy multiple superficial clean ulcers in antrum-biopsy, gastritis irregular z line-biopsy Her symptoms had resolved after the procedure and remained afebrile while on antibiotics throughout her hospitalization. Patient has met maximum benefit from hospitalization and is clinically stable for discharge. She was counseled on starting with a clear liquid diet and gradually advancing as tolerated. Pt Condition on Discharge: Stable Discharge Disposition: Discharge Home Discharge Time: > 30 minutes Discharge Instructions DIET: Follow Instructions for: Clear Liquid Diet Activities you can perform: Weight Bearing as Nora Follow up Referrals: Gastroenterology - 2 Weeks with Catalina Aponte MD New Medications: Azithromycin (Azithromycin) 250 Mg Tab 250 MG PO DAILY for Infection, #3 TAB 0 Refills Levofloxacin (Levofloxacin) 500 Mg Tablet 500 MG PO DAILY for Infection, #7 TAB 0 Refills Pantoprazole (Protonix) 40 Mg Tab 40 MG PO twice daily for Reflux, #60 TAB 0 Refills Sucralfate (Carafate) 1 Gram Tab 1 GM PO QID for Ulcer Prevention, #120 TAB 0 Refills On empty stomach Continued Medications: Adalimumab 2-Pack Inj (Humira 2-Pack Inj) 10 Mg/0.2 Ml Syr Unknown Dose SQ EVERY OTHER MONTH, #1 KIT 0 Refills Docusate Sodium (Stool Softener) 50 Mg Capsule Unknown Dose Hydrocodone-Acetaminophen (Hydrocodone-Acetaminophen) 5-325 mg Tab 1 TAB PO Q4H PRN for PAIN, TAB 0 Refills Methocarbamol (Robaxin) 500 Mg Tab Unknown Dose PO QID for Muscle Spasm, TAB 0 Refills Tramadol (Tramadol) 50 Mg Tab Unknown Dose PO Q4H PRN for PAIN, TAB 0 Refills Discontinued Medications: Famotidine (Pepcid) 20 Mg Tab Unknown Dose PO BID, #60 TAB 0 Refills Naproxen (Naprosyn) 500 Mg Tab 500 MG PO BID, #60 TAB 0 Refills Jeremy Lee MD May 12, 2017 09:08
== END 2017-05-10 16:03 | disposition home or self-care (01) ==
LOC: PHED 09:42 → PHEDA 14:21 → PH3B 16:15
PROVIDERS: ADMIT Hospitalist; ATTEND Hospitalist
DX: J18.1 Lobar pneumonia, unspecified organism (principal); D64.9 Anemia, unspecified; K22.2 Esophageal obstruction; K26.9 Duodenal ulcer, unspecified as acute or chronic, without hemorrhage or perforation; K29.70 Gastritis, unspecified, without bleeding; K50.90 Crohn's disease, unspecified, without complications; K21.9 Gastro-esophageal reflux disease without esophagitis; Z87.891 Personal history of nicotine dependence; Z98.890 Other specified postprocedural states
CPT/HCPCS: 00740; 36430; 43239; 43248; 71020; 74176; 76705; 80048; 80053; 80076; 81001; 83690; 85025; 86850; 86900; 86901; 86920; 88305; 94150; 96361; 96365; 96366; 96367; 96372; 96375; 96376; 97110; 97116; 97162; 99285; C1769; C9113; G0378; G8987; G8988; J0330; J0456; J0692; J0696; J0780; J1100; J2270; J2405; J2550; J2765; J7030; J7050; J8501; P9016